=== PATIENT | female | born 2000 | race Caucasian/White ===

== ENCOUNTER 2021-03-27 01:56 | Emergency (ER) | payer BC, SELFPAY ==
[2021-03-27 02:07] VITALS: BP 143/85; PULSE 116; RESP 158; TEMP 36.6; O2SAT 99; BMI 35.0
[2021-03-27 02:15] VITALS: RESP 18; O2SAT 98
--- NOTE | 2021-03-27 02:19 | W.ED.GENADLT ---
HPI - General Adult General: Chief complaint: General Medical Stated complaint: Boil on Bottom Time Seen by Provider: 03/27/21 02:14 History of Present Illness: HPI narrative: 20-year-old female comes in today with a pilonidal cyst to the cleft of the buttocks. Patient noticed it in the last 2 days. Worsening symptoms as night. Patient is visiting from [facility]. Patient appears well. Patient appears no acute distress. Review of Systems General: Reports: 10 or more systems reviewed and unremarkable except in HPI and below Skin/Breast: Reports: other (Boil to the buttocks.) Physical Exam Const: COMMON NORMALS: no acute distress and patient oriented x3 GENERAL APPEARANCE: cooperative HENMT: COMMON NORMALS: normocephalic HEAD & SCALP: normal to inspection and normocephalic Eye: GENERAL EYE: appearance normal, both eyes and all related structures Neck/C-Spine: COMMON NORMALS: full ROM Chest: COMMONS NORMALS: normal inspection of the chest Resp: COMMON NORMALS: normal respiratory effort EFFORT & INSPECTION: Yes able to speak in complete sentences Cardio: COMMON NORMALS: regular rate and regular rhythm RATE: regular rate RHYTHM: regular rhythm GI: COMMON NORMALS: non-tender Back/Pelvis: COMMON NORMALS: thoracic and lumbar spine normal to inspection Extremity: COMMON NORMALS: normal to inspection Neuro: COMMON NORMALS: patient oriented x3 and moves all extremities Psych: COMMON NORMALS: mental status grossly normal and cooperative Skin: NARRATIVE SKIN EXAM: Fluctuant lesion to the cleft of the buttocks. Procedures Abscess I/D Site: other (Cleft of the buttocks) Local Anesthetic: lidocaine 1% and with epi Amount of anesthesia used (mL): 6 Technique: incised with #11 blade Irrigation: Yes Packing used?: none Course Vital Signs: Vital signs: Vital Signs Temperature 97.8 F 03/27/21 02:07 Pulse Rate 116 H 03/27/21 02:07 Respiratory Rate 18 03/27/21 02:15 Blood Pressure 143/85 03/27/21 02:07 Pulse Oximetry 98 03/27/21 02:15 MDM - General Adult MDM Narrative: Medical decision making narrative: Patient comes in with a sore lesion to the buttocks. Patient reports is been bothering her and worsening over the last 6 days. On exam we note a fluctuant lesion to the buttocks cleft. Minimal surrounding erythema. Differential diagnosis includes but not limited to abscess, pilonidal cyst, cellulitis. Patient was given a Bactrim tablet, and I&D was completed under local anesthetic. Patient tolerated well. Patient will be continued on Bactrim DS 1 tablet twice a day for the next 7 days. Patient was also given a short prescription of hydrocodone 09/21/2024 number 6 tablets to help with pain control. Patient reports understanding of care plan and need for follow-up or return to the ER. Discharge Plan Discharge Patient Disposition: Home Clinical Impression: Pilonidal cyst with abscess Condition: Stable Prescriptions: New Bactrim DS 800-160 mg tablet 1 tab PO BID 7 Days Qty: 14 RF: 0 hydrocodone-acetaminophen 5-325 mg tablet 1 tab PO Q8H PRN (Reason: pain (scale score 7-10)) Qty: 6 RF: 0 Discharge Orders: Discharge ED (Routine); Ordered 03/27/21 Ordered By: Gerson Suh Discharge Diet: Usual diet Discharge Activity: Increase activity as tolerated Patient Instructions: Abscess Incision and Drainage (DC), Opioid Safety Activity Restrictions/Additional Instructions: Drink plenty of water with medication. Use Tylenol and ibuprofen for control of pain. Use hydrocodone for breakthrough pain. Follow-up with primary care or general surgeon for further evaluation and treatment of pilonidal cyst. Sometimes further surgical treatment needs to be done for complete removal of the cyst. Coding Level of Care Code ED Machine Chocolate Molder for Kettyg Fwd Exam Comprehensive
[2021-03-27] MEDS: sulfamethoxazole-trimeth DS 160-800 mg Tablet 1 TAB PO (02:30)
[2021-03-27] MEDS: HYDROcodone-acetaminophen 5-325 mg Tablet 1 TAB PO (02:30)
[2021-03-27 02:49] VITALS: O2SAT 98
[2021-03-27 02:51] VITALS: BP 143/85; PULSE 116; RESP 18; TEMP 36.6; O2SAT 98
== END 2021-03-27 02:53 | disposition home or self-care (01) ==
PROVIDERS: Emergency Provider Nurse Practitioner Family
DX: L05.01 Pilonidal cyst with abscess (principal)
CPT/HCPCS: 10060; 99283